=== PATIENT | male | born 1965 | race Caucasian/White ===

== ENCOUNTER 2018-07-13 12:28 | Emergency (ER) | payer MEDICAID, SELFPAY ==
[2018-07-13 12:29] VITALS: BP 120/88; PULSE 73; RESP 16; TEMP 37; O2SAT 97; BMI 24.0
--- NOTE | 2018-07-13 13:01 | ED.VISSUMM ---
- ER Visit Summary Date of Service: 07/13/18 Chief Complaint: Dental pain History of Present Illness: The patient is a 53 M who was seen 1 week ago by urgent care and placed on antibiotics presents with continuing pain of his gingiva he has all his upper teeth removed and developed an ulcerated lesion in that region. No edema, no fever chills or any other symptoms. Physical Examination: Exam is otherwise unremarkable, his upper teeth are missing, he does have an ulcerated lesion over where the right central incisor would be. I do not see any signs of infection. Emergency Department Course and Treatment: I explained to the patient that this may be an ulcerated lesion, however this may need to be biopsied for oral cancer especially that he uses chewing tobacco, I gave him a list of dentists. Otherwise he will be discharged in stable conditions. Discharge stable condition Impression: [Dental ulcer, oral lesion] This note was generated with [employer] dictation software. It may contain incorrect words, spelling, and punctuation that were not noted in review of the chart prior to signing ED Disposition - Plan for ED Patient: Disposition: Home or Assisted Living Chief Complaint: Dental Instructions: Dental Abscess Prescriptions: Hydrocodone Bitart/Apap 5-325 [Fowler 5MG-325MG] 1 tab PO Q4H PRN PRN 2 Days #10 tab PRN Reason: Pain Referrals: Bladimir Delatorre MD [Primary Care Provider] - 2 Days
== END 2018-07-13 13:24 | disposition home or self-care (01) ==
PROVIDERS: Emergency Provider Emergency Medicine; Family Provider Family Medicine; PCP Family Medicine
DX: K13.79 Other lesions of oral mucosa (principal); K08.89 Other specified disorders of teeth and supporting structures; F41.9 Anxiety disorder, unspecified; F17.220 Nicotine dependence, chewing tobacco, uncomplicated; Z72.0 Tobacco use
CPT/HCPCS: 99282

== ENCOUNTER 2020-09-10 11:00 | Emergency (ER) | payer MEDICAID, SELFPAY ==
[2020-09-10 11:01] VITALS: BP 139/105; PULSE 89; RESP 17; TEMP 36.9; O2SAT 100; BMI 23.4
--- NOTE | 2020-09-10 11:16 | RAD_ITS ---
STUDY: X-RAY CHEST REASON FOR EXAM: Male, 55 years old. sob and cough TECHNIQUE: AP COMPARISON: 12/07/2016 FINDINGS: The lungs are clear and expanded. There is no demonstrated pleural abnormality. Normal size heart. Normal mediastinum and nadine. Normal visualized pulmonary arteries. Normal visualized aortic arch and descending thoracic aorta. Normal visualized thoracic spine. Normal visualized ribs, clavicles, and shoulders. There is no demonstrated abnormality of the visualized soft tissue structures of the upper abdomen. RAD/Chest 1 View (Portable) IMPRESSION: Stable, nonacute portable x-ray examination of the chest. Electronically Signed: Tyrone Nash MD ([place]) at 12:33 EDT , Service support ,
--- NOTE | 2020-09-10 11:18 | ED.VIS.GEN ---
History of Present Illness Chief Complaint: Shortness of Breath Narrative: This patient is a 55-year-old male who has been ill for the past 3 to 4 days. He complains of headache, fatigue, generalized malaise, myalgias and arthralgias, a scratchy throat, cough, shortness of breath, diarrhea, nausea. No fevers. No vomiting. No chest or abdominal pain. He denies any heart or lung disease. He has a history of anxiety otherwise no medical history. Past Medical History - Allergies and Home Meds Allergies/Adverse Reactions: Allergies aspirin Adverse Reaction (Verified 09/10/20 11:01) Abd cramps/diarrhea sulfamethoxazole [From Bactrim] Adverse Reaction (Verified 09/10/20 11:01) Abd cramps/diarrhea trimethoprim [From Bactrim] Adverse Reaction (Verified 09/10/20 11:01) Abd cramps/diarrhea Primary Care Physician: Bladimir Delatorre MD [Primary Care Provider] - Past Medical History: - - Anxiety Smoking Status: Current every day smoker Review of Systems All systems negative except as indicated General: Reports: Malaise. Denies: Fever Eyes: Denies: Visual changes - bilaterally ENT: Reports: Sore throat Cardiovascular: Denies: Chest pain Respiratory: Reports: Dyspnea, Cough Gastrointestinal: Reports: Nausea, Diarrhea. Denies: Abdominal pain, Vomiting Musculoskeletal: Reports: Myalgias, Arthralgias Skin: Denies: Rash Neurological: Denies: Headache Hematologic: Denies: Easy bruising Allergy: Denies: Uticaria Physical Exam Vital Signs/Narrative: Vital Signs Temp Pulse Resp BP Pulse Ox 09/10/20 11:01 98.4 F 89 17 139/105 H 100 Inital Vital Signs reviewed: Yes General: Well nourished Head: Normocephalic Eyes: EOMI ENT: Moist mucous membranes Neck: Supple Cardiovascular: Regular rate, Regular rhythm Respiratory: No distress, CTA bilaterally Abdomen: Soft Skin: Normal color Neurological: Alert Psychological: Normal affect Diagnostic/Tx/Re-eval Impressions Chest X-Ray 09/10/20 11:16 IMPRESSION: Stable, nonacute portable x-ray examination of the chest. Electronically Signed: Tyrone Nash MD ([place]) at 12:33 EDT , Service support , 09/10/20 11:16 CXR [Chest 1 View (Portable)] [RAD] Stat - Medical Decision Making Chest x-ray unremarkable no focal infiltrate. Patient's vitals are stable. He actually notes his symptoms are little bit better today than they were yesterday. COVID-19 testing was sent. He was advised that his presentation is most consistent with a viral syndrome. He was advised on quarantine. He understands to return for new or worsening symptoms. The patient was instructed on specific signs and symptoms to monitor for and the patient was discharged. ED Disposition - Plan for ED Patient: Disposition: Home or Assisted Living Diagnosis: Viral syndrome Instructions: ED Viral Syndrome Referrals: Bladimir Delatorre MD [Primary Care Provider] -
[2020-09-10 11:23] VITALS: BP 139/105; PULSE 89; RESP 17; TEMP 36.9; O2SAT 100; O2SAT 97
[2020-09-10 13:03] VITALS: BP 135/74; PULSE 74; PULSE 81; RESP 16; O2SAT 98
== END 2020-09-10 13:03 | disposition home or self-care (01) ==
PROVIDERS: Emergency Provider Emergency Medicine; PCP Family Medicine
DX: B34.9 Viral infection, unspecified (principal); R51.9 Headache, unspecified; R53.83 Other fatigue; R53.81 Other malaise; M79.10 Myalgia, unspecified site; J02.9 Acute pharyngitis, unspecified; R06.00 Dyspnea, unspecified; R05 Cough; R11.0 Nausea; R19.7 Diarrhea, unspecified; F17.200 Nicotine dependence, unspecified, uncomplicated
CPT/HCPCS: 71045; 87635; 99282; U0003

== ENCOUNTER 2021-05-23 11:16 | Emergency (ER) | payer MEDICAID, SELFPAY ==
[2021-05-23 11:17] VITALS: BP 134/89; PULSE 80; RESP 16; TEMP 36.5; O2SAT 100; BMI 23.7
--- NOTE | 2021-05-23 11:36 | CT_ITS ---
STUDY: CT ABDOMEN AND PELVIS WITH CONTRAST REASON FOR EXAM: Male, 56 years old. Abdominal pain and radiating into back. History of bleeding ulcers. RADIATION DOSAGE (If Supplied By Facility): CTDIvol = ( 9.49 ) mGy, DLP = ( 633.84 ) mGycm TECHNIQUE: Transaxial images were obtained from the dome of the diaphragm to the symphysis pubis without oral contrast. IV 100mL Isovue-300 was administered. Sagittal and coronal images were reconstructed. Individualized dose optimization techniques were used for this CT. COMPARISON: None. FINDINGS: The visualized lung bases are unremarkable. Coronary artery calcification. Dense linear calcification along the medial aspect of the left lobe of the liver suggestive of granulomatous disease. Normal gallbladder and extrahepatic biliary system. Normal spleen. Normal pancreas. Normal bilateral adrenal glands. Normal right kidney. There is a 2.6 cm x 2.7 cm cyst in the upper posterior aspect of the left kidney. There is a small hiatal hernia. Normal small intestine. There are multiple colonic diverticula consistent with diverticulosis. The appendix is visualized and appears normal. There is scattered atherosclerotic calcification of the abdominal aorta, without a demonstrated aneurysm. Normal inferior vena cava. Normal retroperitoneum. Mild degree of diffuse bladder wall thickening. There is enlargement of the prostate gland. It measures 5.3 cm x 4.1 cm. This causes indentation of the bladder base. Normal abdominal wall. Normal osseous structures. CT/Abdomen/Pelvis W IV Cont ONLY IMPRESSION: Dense linear calcification along the medial aspect of the left lobe of the liver. Colonic diverticulosis. 2.6 cm x 2.7 cm cyst in the upper posterior aspect of the left kidney. Prostatic enlargement. Mild degree of diffuse bladder wall thickening. Electronically Signed: Jose Gallagher MD at 12:47 EDT , Service support ,
--- NOTE | 2021-05-23 11:37 | ED.VIS.GI ---
HPI HPI - GI History of Present Illness Chief Complaint: Abd Pain Detail of Chief Complaint: Abdominal pain that started 4 to 5 days ago Informant: patient Abdominal Pain/Flank Pain Timing: Continuous and Waxes and wanes Current Severity: 6/10 Nausea/Vomiting/Emesis GI Symptom: Positive for Nausea Narrative Narrative: Patient presents with abdominal pain that started 4 to 5 days ago. Patient states that it is continuous but waxes and wanes in intensity. Patient states that food seems to make it worse. He has had nausea but no vomiting. He denies any fevers. He denies any blood in stool or black tarry stools. Patient states that at times the pain will radiate to his back and right upper quadrant. Patient states he had similar pain in the past and was diagnosed with pancreatitis 8 years ago or so. He does not drink alcohol. Patient started Mobic for arthritis recently and he thought that may be causing his discomfort so he stopped taking it a few days ago. Patient denies any urinary symptoms. Prior similar symptoms: Yes [facility] Medical History (Updated 05/23/21 @ 13:[address] Saadia Razo, ) Anxiety Home Medications lorazepam 1 mg PO TID 09/10/20 [History Last Taken Unknown] hydrocodone-acetaminophen 1 tab PO Q4H PRN PRN 2 Days #10 tablet 05/23/21 [Rx Last Taken Unknown] lansoprazole [Prevacid] 30 mg PO DAILY #30 cap 05/23/21 [Rx Last Taken Unknown] Allergy/AdvReac Type Severity Reaction Status Date / Time aspirin AdvReac Abd Verified 05/23/21 11:17 cramps/diarrhea sulfamethoxazole AdvReac Abd Verified 05/23/21 11:17 [From Bactrim] cramps/diarrhea trimethoprim [From Bactrim] AdvReac Abd Verified 05/23/21 11:17 cramps/diarrhea Social History Smoking Status: Current every day smoker tobacco type: cigarettes ROS ROS ED Constitutional Constitutional ED: Reports systems reviewed and no addt'l complaints, except as documented; Denies body ache(s), change in weight or chills Eyes Eyes: Denies acute decrease in peripheral vision, change in vision, double vision or loss of vision ENT ENT ED: Reports none; Denies ear pain, lip swelling, loss taste/smell, neck pain, otalgia or sore throat Cardiovascular Cardiovascular: Reports none; Denies abdominal pain, chest pain with activity, leg edema, lightheadedness, palpitations, rapid heart rate or syncope Respiratory/Chest Respiratory/Chest: Reports none; Denies change in mental status, dry cough, dyspnea, hemoptysis, shortness of breath at rest or shortness of breath with exertion Gastrointestinal Gastrointestinal: Reports abdominal pain and nausea Genitourinary Genitourinary ED: Reports none; Denies abdominal discomfort, anuria, dysuria, genital pain or polyuria Musculoskeletal Musculoskeletal: Reports none; Denies arthralgias, back pain, difficulty walking, extremity pain, muscle weakness or myalgias Integumentary Reports none; Denies abscess or rash Neurologic Neurologic: Reports none; Denies abnormal gait, confusion, focal weakness, frequent falls, headache(s), loss of vision, numbness, paresthesias, radicular pain, vertigo or weakness Psychiatric Psychiatric: Reports systems reviewed and no addt'l complaints, except as documented and none; Denies behavioral changes, confusion, difficulty concentrating, hallucinations, suicidal ideation, tactile hallucinations or visual hallucinations Endocrine Endocrinology: Denies none, cold intolerance, excessive sweating, fatigue or heat intolerance Hematologic/Lymphatic Hematologic/Lymphatic: Reports none; Denies anemia, easy bleeding or easy bruising Allergic/Immunologic Allergic/Immunologic ED: Denies as per HPI, none, lip swelling, mouth swelling, throat swelling, tongue swelling or hives EXAM Physical Exam Const Vital Signs: 05/23/21 11:17 Temperature 97.7 F L Temperature Source Temporal Pulse Rate 80 Respiratory Rate 16 Blood Pressure 134/89 H Blood Pressure Mean 104 Pulse Ox 100 Oxygen Delivery Method Room Air Positive well nourished and well developed General Appearance ED: well developed and NAD HEENT Reports TM's clear and moist mucous membranes normocephalic and atraumatic; Negative for trauma or tenderness Tympanic Membrane ED: Yes TM's clear Eyes PERRL and EOMs intact bilaterally General Eye ED: Negative for pale conjunctiva or scleral icterus Neck no lymphadenopathy, supple and no JVD General: Negative for tenderness Chest Wall inspection of chest normal and palpation of chest normal Chest: Negative for tenderness Resp normal respiratory effort and clear to auscultation bilaterally Effort and Inspection: Negative for respiratory distress or pain with movement Auscultation: Negative for rhonchi, wheezes or diminished lung sounds Cardio regular rate, regular rhythm, S1 normal heart sound, S2 normal heart sound and no murmurs Peripheral Pulses: pulses 2+ throughout GI normal to inspection, nondistended, normoactive bowel sounds, soft to palpation, non-tender, non-distended and no masses GI Narrative: Patient tender to the epigastric region right upper quadrant with some mild guarding. There is no rebound, rigidity, or peritoneal signs. No masses palpated. Palpation: tender Back/Spine no CVA tenderness and no thoracic nor lumbar tenderness Extremity normal to inspection General Extremety ED: Negative for edema General Extremity: Negative for edema Neuro oriented x3, CN's II-XII intact bilaterally, no sensory deficits noted and gait normal Sensorium / Orientation: awake, alert, oriented to person, oriented to place and oriented to time Motor Exam: strength 5/5 throughout and strength abnormal Psych mental status grossly normal Skin no rashes or lesions noted and no wounds MDM MDM MDM Narrative Medical decision making narrative: Etiology of patient's abdominal pain unclear. Patient will start Prevacid and will give a few [place] for pain. Patient will be referred to urology for follow-up of the prostate enlargement and also given referral to general surgeon on-call for possible EGD to evaluate his abdominal pain further. Patient advised to return if worsening pain, fever, vomiting, or condition should worsen anyway. Lab Data Attestation: I reviewed the patient's lab results. Labs: Laboratory Results - last 24 hr 05/23/21 05/23/21 05/23/21 12:00 12:05 12:05 WBC 6.5 RBC 5.09 Hgb 15.3 Hct 44.9 MCV 88.2 MCH 30.1 MCHC 34.1 RDW Std Deviation 43.2 RDW Coeff of Halley 13.2 Plt Count 229 MPV 9.5 Immature Gran % (Auto) 0.300 Neut % (Auto) 55.6 Lymph % (Auto) 33.5 Jennings % (Auto) 6.0 Eos % (Auto) 3.4 Baso % (Auto) 1.2 H Absolute Neuts (auto) 3.6 Absolute Lymphs (auto) 2.17 Nucleated RBC % 0 Sodium 138 Potassium 4.0 Chloride 106 Carbon Dioxide 29.0 Anion Gap 3 L BUN 6 L Creatinine 1.08 Estim Creat Clear Calc 62.93 Est GFR (MDRD) Af Amer 92 Est GFR (MDRD) Non-Af 76 BUN/Creatinine Ratio 5.6 L Glucose 83 Lactic Acid Calcium 9.0 Total Bilirubin 0.40 AST 19 ALT 20 Alkaline Phosphatase 91 Total Protein 7.5 Albumin 4.1 Globulin 3.4 Albumin/Globulin Ratio 1.2 Lipase 56 L Urine Color Yellow Urine Clarity Clear Urine pH 6.0 Ur Specific Benedicta 1.010 Urine Protein 15 H Urine Glucose (UA) Normal Urine Ketones Negative Urine Occult Blood Negative Urine Nitrite Negative Urine Bilirubin Negative Urine Urobilinogen Normal Ur Leukocyte Esterase Negative Urine RBC 0 SEEN Urine WBC 0 SEEN Ur Squamous Epith Cells 0 SEEN Urine Bacteria 0 SEEN Urine Mucus 0 SEEN 05/23/21 12:05 WBC RBC Hgb Hct MCV MCH MCHC RDW Std Deviation RDW Coeff of Halley Plt Count MPV Immature Gran % (Auto) Neut % (Auto) Lymph % (Auto) Jennings % (Auto) Eos % (Auto) Baso % (Auto) Absolute Neuts (auto) Absolute Lymphs (auto) Nucleated RBC % Sodium Potassium Chloride Carbon Dioxide Anion Gap BUN Creatinine Estim Creat Clear Calc Est GFR (MDRD) Af Amer Est GFR (MDRD) Non-Af BUN/Creatinine Ratio Glucose Lactic Acid 1.0 Calcium Total Bilirubin AST ALT Alkaline Phosphatase Total Protein Albumin Globulin Albumin/Globulin Ratio Lipase Urine Color Urine Clarity Urine pH Ur Specific Benedicta Urine Protein Urine Glucose (UA) Urine Ketones Urine Occult Blood Urine Nitrite Urine Bilirubin Urine Urobilinogen Ur Leukocyte Esterase Urine RBC Urine WBC Ur Squamous Epith Cells Urine Bacteria Urine Mucus Radiography Diagnostic Testing: Radiology Impression Abdomen/Pelvis CT 05/23/21 11:36 IMPRESSION: Dense linear calcification along the medial aspect of the left lobe of the liver. Colonic diverticulosis. 2.6 cm x 2.7 cm cyst in the upper posterior aspect of the left kidney. Prostatic enlargement. Mild degree of diffuse bladder wall thickening. Electronically Signed: Jose Gallagher MD at 12:47 EDT , Service support , Discharge Plan Triage Chief Complaint: Abd Pain ED Provider: Saadia Razo Dx/Rx/DC Orders Clinical Impression: Abdominal pain Instructions: ED Unknown Causes of Abdominal ... Prescriptions: New hydrocodone-acetaminophen [hydrocodone-acetaminophen] 1 TABLET tablet 1 tab PO Q4H PRN PRN (Reason: Pain) 2 Days Qty: 10 RF: 0 lansoprazole [Prevacid] 30 mg capsule,delayed release(DR/EC) 30 mg PO DAILY Qty: 30 RF: 0 No Action lorazepam 1 MG tablet 1 mg PO TID RF: 0 Primary Care Provider: Bladimir Delatorre Referrals: Ty Lopes MD [STAFF PHYSICIAN] - 3-5 Days Jb Rodriguez MD [STAFF PHYSICIAN] - 3-5 Days Bladimir Delatorre MD [Primary Care Provider] - Disposition Disposition: Home, Self Care
[2021-05-23] MEDS: Ondansetron 4 MG/2 ML Vial IV (12:05)
[2021-05-23] MEDS: Morphine 4 MG/ML Syringe IV (12:05)
[2021-05-23 12:10] LABS: Bacteria 0 SEEN /hpf (None Seen); Mucous, Urine 0 SEEN /hpf (<or=2+); Red Blood Cells-Urine 0 SEEN /hpf (0-5); Squamous Epithelial Cells - UA 0 SEEN /hpf (0-5); White Blood Cells 0 SEEN /hpf (0-5)
[2021-05-23] MEDS: 0.9% Normal Saline 1,000 ML 125 ML IV (12:12)
[2021-05-23 12:15] LABS: Color, Urine Yellow (Yellow); Glucose, Dipstick Normal (Normal); Ketone-Dipstick Negative (Negative); Leukocyte Esterase-Dipstick Negative /ul (Negative); Nitrite-Dipstick Negative (Negative); Occult Blood-Urine Negative /ul (Negative); Protein-Dipstick 15 mg/dl (Negative); Urine Bilirubin Dipstick Negative (Negative); Urine Clarity Clear (Clear); Urine Urobilinogen Normal (Normal)
[2021-05-23 12:15] LABS: Absolute Lymphocyte Count 2.17 X10^3/uL (0.83-4.51); Absolute Neutrophil Count 3.6 X10^3/uL (2.0-7.7); Basophil# 0.08 X10^3/uL; Basophil% 1.2 % (0-1); Eosinophil# 0.22 X10^3/uL; Eosinophils% 3.4 % (0-5); Hematocrit 44.9 % (40-54); Hemoglobin 15.3 g/dL (13.0-16.5); Lymphocyte # 2.17 X10^3/ul (0.83-4.51); Lymphocyte % 33.5 % (19-41); Mean Corp Hgb Conc 34.1 g/dL (32-36); Mean Corpuscular Hgb 30.1 pg (27.0-32.0); Mean Corpuscular Volume 88.2 fL (80-94); Mean Platelet Vol. 9.5 fl (6.2-12.0); Monocyte# 0.39 X10^3/uL; NRBC Flagged by Analyzer 0 % (0-5); Neutrophil % 55.6 % (47-70); Platelet Count 229 K/mm3 (150-450); RBC Distribution Width CV 13.2 % (11.6-14.6); RBC Distribution Width SD 43.2 fl (35.1-43.9); Red Blood Count 5.09 M/mm3 (4.6-6.2); White Blood Count 6.5 K/mm3 (4.4-11.0)
[2021-05-23 12:28] LABS: ALB/GLOB Ratio 1.2 RATIO (0.9-2.4); AST(SGOT) 19 U/L (15-37); Alanine Aminotransfer ALT/SGPT 20 U/L (16-61); Albumin, Serum 4.1 g/dL (3.2-5.0); Alkaline Phosphatase 91 U/L (45-117); Anion Gap 3 (5-15); BUN 6 mg/dL (7-18); BUN/Creat Ratio 5.6 RATIO (10-20); Chloride 106 mmol/L (98-107); Creatinine, Serum 1.08 mg/dL (0.70-1.30); EST Glomerular Filtration Rate 76 mL/min (>60); Est Glom Filt Rate - Afr Amer 92 mL/min (>60); Estimated Creatinine Clearance 62.93 ml/min; Globulin 3.4 g/dL (2.2-4.2); Glucose 83 mg/dL (74-106); Lipase 56 U/L (73-393); Protein, Total 7.5 g/dL (6.4-8.2); Sodium Level 138 mmol/L (136-145)
== END 2021-05-23 14:29 | disposition home or self-care (01) ==
PROVIDERS: Emergency Provider Emergency Medicine; PCP Family Medicine
DX: R10.9 Unspecified abdominal pain (principal); R11.0 Nausea; F41.9 Anxiety disorder, unspecified; M19.90 Unspecified osteoarthritis, unspecified site; N40.0 Benign prostatic hyperplasia without lower urinary tract symptoms; Z87.19 Personal history of other diseases of the digestive system; Z79.82 Long term (current) use of aspirin; Z79.899 Other long term (current) drug therapy; F17.210 Nicotine dependence, cigarettes, uncomplicated
CPT/HCPCS: 74177; 80053; 81001; 83605; 83690; 85025; 96361; 96374; 96375; 99283; J7030; Q9967; A4216; J2405

== ENCOUNTER 2022-06-05 13:00 | Outpatient (RCR) | payer MEDICAID, SELFPAY ==
--- NOTE | 2022-04-16 18:07 | HP.OTEVAL ---
Patient's Visit Information MONAE LEDEZMA is a 56 year old M, referred to Occupational Therapy by Dr. 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 Date of Evaluation: 04/16/22 Occupational Therapist: Ai Sanz, OTR/L, CHT - Subjective Pt. is a 56 y/o male who was referred for OT evaluation for osteoarthritis of L hand. Goes by MEGGAN and arrived with prefab splint. L hand has been bothering him for 2 years then decided on surgery. Surgery was on the April 04 (2 weeks on Saturday) CMC surgery, [facility] by Dr. Ingram. Pt. has been having difficulty with ADL's, IADL (guitar playing), work and motorcycle riding. Pt. reporting that he is out of pain medication. S/OT explained that he will need to speak with doctor about pain med refill that the S/OT cannot call over for that. Pt. would like to return to [facility]. - ADLs Dressing: Button shirt, Pants, Socks Fasteners: Buttons, Zippers Eating: Cut food Comments: landlord takes care of Comments: Ambidextrous more dominant on R hand. is able to assist as needed. Takes him longer to get dressed and compensates. - Pain Left Hand 6 Pain Intensity Range: 10 - Objective short arc motion (wrist flex/ext) and opposition - ROM Shoulder: B WFL Elbow: B WFL Forearm: R WFL L supination to 50* Wrist: R 45/50 L 5/30 CMC: R 20* L -5* MP: R 20/ 58 L 0/35 IP: R +30/80 L +5/20 Opposition: right 10 left 4 ROM Comments: L hand has decreased ROM. Kapandji opposition scale (4). 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 no difference with temperature - Quick DASH-Disab of Arm,Shoulder& Hand Quick DASH Score: 83.3325 - Goals Goal:100% adherence to protocol: Yes Comment: Dr. Ingram cmc arthroplasty guideline Goal:Daily scar massage when approriate: Yes Goal:ROM equal to unaffected hand: Yes Goal:Licensed [employer] Real Estate Appraiser/Pinch strength at least 75% of unaffected hand: Yes Goal:No pain with affected hand use: Yes Goal:Full use of affected hand in daily activities including: Yes Goal:Decrease scar hypersensitivity: Yes - Rehabilitation General Assessment: Pt. 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 Ingram. Pt. is to follow ROM and strengthening protocol. Educated pt. On what to expect. He has deficits with strength and ROM in L hand. He will benefit from skilled OT services 2x a week for 6 weeks to improve strength and ROM for ADL tasks and return to work. CHT educated pt. on procedure and guideline. Pt. demo'd understanding & agreeable to POC. Therapy session was directly supervised and doc. reviewed and approved by Ai Sanz OTR/L, CHT. Rehabilitation Potential: Good - Anticipated Interventions Early Active Motion, A/AAROM/PROM, Strengthening, Edema Control, Scar Care, Desensitization, Wound Care, Orthoses, Joint Protection/Energy Conservation, Ergonomic Education, Fine Motor Coord/Carlos, ADL Training, Education re Diagnosis, Home Program - Visit Plan Frequency: 2x /Week Duration: 6 Weeks TEXT: Thank you for the opportunity to evaluate your patient. For Medicare and Medicare HMO plans, please review the plan of care and approve it. It will need to be FAXED BACK to us at [phone] for Medicare purposes. Please let me know if there are questions or concerns regarding this plan of care. Physician Signature: Date:
--- NOTE | 2022-06-05 13:28 | HP.OTDCSUM ---
It has been my pleasure to treat MONAE LEDEZMA under orders from Dr. 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 Please see the following information for a summary of their discharge status. % Improvement: 95 Objective/Function: left director of religious activities strength 60#. left lateral pinch strength 4#. left tripod pinch strength 2#. cmc 10*. MP 50*. IP 45*. RA 55*. left opposition to left LF PIP crease. pt demo full functional ROM of left wrist/thumb following a CMC arthroplasty-. pt is out of his brace all of the time-. pt reports IND. with ADLS and IADLs- riding motor cycle -for about and hour at a time- some soreness following. pt is weeding and helping co-worker out with yard worked. pt also changed roters in his car Patient Goals: Regain Mobility, Regain Strength, Decrease Pain, Return to Work, Decrease Swelling/Stiffness, Improve Fine Motor Skills, Use Hand/Wrist/Arm Normally Again, Decrease Tingling/Numbness, Increase ROM, Be More Independent in ADLS, Resume Former Household Responsibilities (Cooking,Cleaning,Yard, etc.), Resume Hobbies, Other Other: play guitar and ride motorcycle Goal:100% adherence to protocol: Yes Goal:Daily scar massage when approriate: Yes Goal:ROM equal to unaffected hand: Yes Goal:Payroll And Benefits Analyst/Pinch strength at least 75% of unaffected hand: Yes Goal:No pain with affected hand use: Yes Goal:Full use of affected hand in daily activities including: Yes Goal:Decrease scar hypersensitivity: Yes Plan: pt met OT goals and is D.C at this time Discharge Comments: PT was seen for 9 OT visits following a left CMC arthroplasty- pt has met OT goals at this time and is d/c with continuation of HEP If there are questions or concerns regarding this patient's occupational therapy, please fell free to call me at [phone]. Thank you for the referral of this patient. Sincerely, Ai Sanz, OTR/L, CHT
== END 2022-06-05 14:23 | disposition home or self-care (01) ==
LOC: OT 13:00
PROVIDERS: PCP Family Medicine; Referring Provider Orthopaedic Surgery; Visit Provider Orthopaedic Surgery
DX: M18.12 Unilateral primary osteoarthritis of first carpometacarpal joint, left hand (principal)
CPT/HCPCS: 97110; 97140; 97165; 97530; 97760; 97763

== ENCOUNTER 2024-02-15 17:33 | Emergency (ER) | payer MEDICAID, SELFPAY ==
[2024-02-15 17:33] VITALS: BP 133/86; PULSE 71; RESP 16; TEMP 36.4; O2SAT 100
[2024-02-15 17:34] VITALS: BP 133/86; PULSE 65; RESP 15; TEMP 36.6; O2SAT 100; BMI 26.2
--- NOTE | 2024-02-15 17:54 | EX.ED.DYSGE1 ---
HPI <RODO Taylor - Last Filed: 02/15/24 18:33> History of Present Illness Chief Complaint: Lower Extremity Injury Narrative Narrative: 58-year-old male states 1 week ago he was squatting down to get something out of the fridge when he felt a small pop and pain in the left knee. It was swollen and painful since then and his doctor did an x-ray which showed arthritis. He was taking Tylenol and Motrin. Today he was turning to enter the bathroom and felt a larger pop in the medial knee and has increased pain. He can ambulate with difficulty. He has no weakness or paresthesias. No fall or direct trauma. PFSH <RODO Taylor - Last Filed: 02/15/24 18:33> [facility] Medical History (Updated 02/15/24 @ 18:29 by RODO Taylor) Abdominal pain Anxiety Anxiety Arthritis Back pain Constipation Depression Fatigue Gastric reflux Hemorrhoids History of echocardiogram History of hiatal hernia History of pain when walking History of stress test Hx of gastric ulcer Hypertension Injury of back Migraine headache Nausea Rheumatoid arthritis Smoker SOB (shortness of breath) Wears dentures Wears glasses Wears partial dentures Home Medications lorazepam 1 mg tablet 1 mg PO TID 09/10/20 [History Last Taken Unknown] cyclobenzaprine 10 mg tablet 10 mg PO PRN PRN MUSCLE SPASMS 06/22/21 [History Last Taken Unknown] lansoprazole 30 mg capsule,delayed release (Prevacid) 30 mg PO PRN PRN GERD 06/22/21 [History Last Taken Unknown] oxycodone-acetaminophen 5 mg-325 mg tablet (Percocet) 1 tab PO Q6H PRN pain 3 days #12 tabs 02/15/24 [Rx Last Taken Unknown] Allergy/AdvReac Type Severity Reaction Status Date / Time promethazine [From Phenergan] AdvReac Mild HALLUCINATI Verified 02/15/24 17:37 ONS aspirin AdvReac Abd Verified 02/15/24 17:37 cramps/diarrhea sulfamethoxazole AdvReac Abd Verified 02/15/24 17:37 [From Bactrim] cramps/diarrhea trimethoprim [From Bactrim] AdvReac Abd Verified 02/15/24 17:37 cramps/diarrhea Family History (Updated 06/06/21 @ 15:06 by Dea Slade) Mother Cancer Father Cancer CVA (cerebral vascular accident) Surgical History History of cardiac catheterization History of colonoscopy Social History (Updated 06/06/21 @ 15:06 by Dea Slade) Smoking Status: Current every day smoker tobacco type: cigarettes alcohol intake: never substance use type: does not use caffeine: Yes what type of physical activity do you participate in: none frequency: does not exercise ROS <RODO Taylor - Last Filed: 02/15/24 18:33> ROS ED ROS Narrative Constitutional: Negative for fever, chills, malaise. Neuro: Negative for motor/sensory dysfunction. Musc: Positive for left knee pain, swelling. EXAM <RODO Taylor - Last Filed: 02/15/24 18:33> Physical Exam Narrative Exam Narrative: CONST: Patient sitting in no acute distress. EYES: Normal inspection. SKIN: Color normal, no rash, warm, dry, intact. EXTREMITIES: Large left knee effusion and tenderness over the medial joint line, normal extension, pain with valgus stress but no laxity. Negative anterior/posterior drawer. Negative modified Kori's. 5/5 strength in knee flexion/extension and DF/PF, normal sensation, 2+ DP pulse. NEURO: Alert and answering questions appropriately. PSYCH: Normal affect. Const Vital Signs: 02/15/24 17:33 02/15/24 17:34 Temperature 97.6 F L 98 F Temperature Source Temporal Temporal Pulse Rate 71 65 Respiratory Rate 16 15 Blood Pressure 133/86 H 133/86 H Blood Pressure Mean 101 101 Pulse Ox 100 100 Oxygen Delivery Method Room Air Room Air <Dr. Saadia Razo DO - Last Filed: 02/15/24 18:29> Physical Exam Const Vital Signs: 02/15/24 17:33 02/15/24 17:34 Temperature 97.6 F L 98 F Temperature Source Temporal Temporal Pulse Rate 71 65 Respiratory Rate 16 15 Blood Pressure 133/86 H 133/86 H Blood Pressure Mean 101 101 Pulse Ox 100 100 Oxygen Delivery Method Room Air Room Air MDM <RODO Taylor - Last Filed: 02/15/24 18:33> MDM MDM Narrative Medical decision making narrative: Patient felt a pop and has pain and swelling in the left medial knee. He has a significant effusion on exam and tenderness over the medial joint line. He has pain with valgus stress but no significant laxity. Extension is intact; neurovascularly intact. X-ray shows an effusion but no acute findings. He was given a knee immobilizer, crutches, Percocet and orthopedic follow-up. Differential: Ligamentous or meniscal injury, knee fracture ED attending interpretation of left knee shows an effusion with no acute fracture or dislocation. Patient seen and evaluated with JOSSELIN. I personally interviewed and examined the patient. I was involved in all aspects of patient's orders, interpretation of results, and treatment. Patient presents with left knee pain/injury initially 1 week ago. Patient states that he crouched down to get an apple out of the fridge and when he tried to stand back up he felt a pop in his knee and had a hard time standing up and straightening the knee. Patient was seen by his primary care physician who ordered an x-ray and was told he had arthritis in the medial compartment but no fractures or other abnormalities. Today he had another episode this morning after going to the bathroom where he felt another large pop and having more pain. He had no trauma or falls otherwise. HEENT-PERRLA, EOMI Cardiovascular-regular rate and rhythm without murmur Lungs-clear to auscultation bilaterally Abdomen-normoactive bowel sounds without tenderness palpation. Extremities-left knee-patient has large knee effusion. Limited range of motion secondary to pain and swelling. Ligamentously appears stable but does have pain with stress of the medial collateral ligament. Do not appreciate significant laxity. Negative anterior posterior drawer test. No appreciating popping or clicking with flexion extension of the knee. He is neurovascular intact distally. Tenderness mostly along the medial joint line. Patient presents with left knee injury/pain. Given repeat injury today we will repeat the x-ray. Clinically I suspect meniscal injury versus ligamentous injury. Patient will be placed in a knee immobilizer and given crutches and given Percocet for pain. Will refer to orthopedics for follow-up. On my interpretation of the x-ray of the knee I do not appreciate any fractures. There is a joint effusion. Clinically I suspect ligamentous or meniscal injury. Patient will be placed in a knee immobilizer and given crutches. He will be referred to orthopedics for follow-up. Will be given Percocet for pain. <Dr. Saadia Razo, DO - Last Filed: 02/15/24 18:29> [facility] Narrative Medical decision making narrative: Patient seen and evaluated with JOSSELIN. I personally interviewed and examined the patient. I was involved in all aspects of patient's orders, interpretation of results, and treatment. Patient presents with left knee pain/injury initially 1 week ago. Patient states that he crouched down to get an apple out of the fridge and when he tried to stand back up he felt a pop in his knee and had a hard time standing up and straightening the knee. Patient was seen by his primary care physician who ordered an x-ray and was told he had arthritis in the medial compartment but no fractures or other abnormalities. Today he had another episode this morning after going to the bathroom where he felt another large pop and having more pain. He had no trauma or falls otherwise. HEENT-PERRLA, EOMI Cardiovascular-regular rate and rhythm without murmur Lungs-clear to auscultation bilaterally Abdomen-normoactive bowel sounds without tenderness palpation. Extremities-left knee-patient has large knee effusion. Limited range of motion secondary to pain and swelling. Ligamentously appears stable but does have pain with stress of the medial collateral ligament. Do not appreciate significant laxity. Negative anterior posterior drawer test. No appreciating popping or clicking with flexion extension of the knee. He is neurovascular intact distally. Tenderness mostly along the medial joint line. Patient presents with left knee injury/pain. Given repeat injury today we will repeat the x-ray. Clinically I suspect meniscal injury versus ligamentous injury. Patient will be placed in a knee immobilizer and given crutches and given Percocet for pain. Will refer to orthopedics for follow-up. On my interpretation of the x-ray of the knee I do not appreciate any fractures. There is a joint effusion. Clinically I suspect ligamentous or meniscal injury. Patient will be placed in a knee immobilizer and given crutches. He will be referred to orthopedics for follow-up. Will be given Percocet for pain. Radiography Diagnostic Testin view x-rays of the left knee interpreted by myself is no evidence of fracture. He does have a joint effusion. Discharge Plan Triage Chief Complaint: Lower Extremity Injury ED Midlevel Provider: Charlene Cobos ED Provider: Saadia Razo Dx/Rx/DC Orders Clinical Impression: Effusion of left knee joint, Acute pain of left knee Instructions: ED Knee Effusion, ED Knee Sprain Ligaments Prescriptions: New oxycodone-acetaminophen [Percocet] 5-325 mg tablet 1 tab PO Q6H PRN (Reason: pain) 3 Days Qty: 12 0RF No Action lorazepam 1 MG tablet 1 mg PO TID Patient Comments: Take one tablet three times daily as needed for anxiety. cyclobenzaprine 10 mg tablet 10 mg PO PRN PRN (Reason: MUSCLE SPASMS) Patient Comments: Take 1 tablet by mouth three times daily as needed for Muscle Spasm. lansoprazole [Prevacid] 30 mg capsule,delayed release(DR/EC) 30 mg PO PRN PRN (Reason: GERD) Primary Care Provider: Bladimir Delatorre Referrals: Bladimir Delatorre MD [Primary Care Provider] - Bryce Mercado MD [Med Staff - Active Staff] - Activity Restrictions/Additional Instructions: Your x-ray shows no broken bones. I suspect you have injured your meniscus or ligaments. I recommend wearing the knee immobilizer and using crutches and following up with an orthopedic doctor. Disposition Disposition: Home, Self Care
--- NOTE | 2024-02-15 18:24 | RAD_ITS ---
EXAM: XR LEFT KNEE COMPLETE, 4 OR MORE VIEWS CLINICAL INDICATION: pain TECHNIQUE: Four or more views of the left knee. COMPARISON: No relevant prior studies available. FINDINGS: BONES/JOINTS: Suprapatellar effusion. No acute fracture. No subluxation. Normal alignment. Preservation of the joint space. No sclerotic or destructive changes observed. SOFT TISSUES: Unremarkable. No soft tissue swelling or gas. No radiopaque foreign body. VASCULATURE: Vascular calcifications. RAD/Knee 4 or More Views IMPRESSION: Suprapatellar effusion. Electronically Signed: Babak Merino MD at 19:36 EDT ,
[2024-02-15 18:46] VITALS: BP 132/85; PULSE 63; RESP 16; TEMP 36.3; O2SAT 98
== END 2024-02-15 18:49 | disposition home or self-care (01) ==
LOC: ED 18:34
PROVIDERS: Emergency Provider Emergency Medicine; PCP Family Medicine; Visit Provider Emergency Medicine
DX: M25.462 Effusion, left knee (principal); M25.562 Pain in left knee; X58.XXXA Exposure to other specified factors, initial encounter; I10 Essential (primary) hypertension; F41.9 Anxiety disorder, unspecified; K21.9 Gastro-esophageal reflux disease without esophagitis; Z79.899 Other long term (current) drug therapy; F17.210 Nicotine dependence, cigarettes, uncomplicated
CPT/HCPCS: 73564; 99284

== ENCOUNTER → 2024-02-28 | Outpatient (CLI) | payer MEDICAID, SELFPAY ==
--- NOTE | 2024-02-28 10:09 | MRI_ITS ---
STUDY: MRI LEFT KNEE REASON FOR EXAM: Male, 58 years old. Pain, effusion, evaluate for medial meniscal tear. Popping and grinding. Swelled. Difficulty ambulating and bending. Pain is dull, sharp and throbbing. TECHNIQUE: Standardized fat and water weighted pulse sequences were obtained in all 3 orthogonal planes. COMPARISON: None. FINDINGS: There is a bucket handle tear of the medial meniscus, with a displaced meniscal fragment within the intercondylar notch. Normal hyaline cartilage of the medial femorotibial compartment. Normal medial femoral condyle and tibial plateau. There is a mild grade I MCL sprain with periligamentous edema. Normal distal semimembranosus, gracilis and semitendinosus tendons. Normal lateral meniscus. Normal hyaline cartilage of the lateral femorotibial compartment. Normal lateral femoral condyle and tibial plateau. Normal proximal tibiofibular articulation. Normal lateral collateral (fibular) ligament. Normal popliteus tendon. Normal biceps femoris tendon. Normal anterior cruciate ligament (ACL). Normal posterior cruciate ligament (PCL). Normal congruent patellofemoral articulation. Normal hyaline cartilage of the patellofemoral compartment. Normal medial and lateral patellar retinaculum. Normal quadriceps tendon. Normal patellar tendon. Normal Hoffa''s fat pad. There is a large volume joint effusion. There is a tiny popliteal cyst. There is subcutaneous soft tissue edema around the left knee. The otherwise visualized osseous structures are unremarkable. MRI/Lower Ext Joint Only (Routine) IMPRESSION: Bucket handle tear of the medial meniscus, with a displaced meniscal fragment within the intercondylar notch. Mild grade I MCL sprain. Large joint effusion, with a tiny popliteal cyst. Subcutaneous soft tissue edema around the left knee. Electronically Signed: Timo Whitmore MD at 11:42 EDT ,
== END | disposition home or self-care (01) ==
LOC: MRI 10:07
PROVIDERS: PCP Family Medicine; Referring Provider Orthopaedic Surgery Sports Medicine; Visit Provider Orthopaedic Surgery Sports Medicine
DX: M25.462 Effusion, left knee (principal); M25.562 Pain in left knee
CPT/HCPCS: 73721

== ENCOUNTER 2024-03-11 07:28 | Day surgery (SDC) | payer MEDICAID, SELFPAY ==
[2024-03-11] VITALS (9 sets, daily range): BP systolic 125–160; BP diastolic 87–103; PULSE 65–80; RESP 16–18; TEMP 36.1–36.6; O2SAT 93–100; BMI 26.3
[2024-03-11] MEDS: Lactated Ringers 1,000 ML 15 ML IV ×2 (08:04→10:52)
--- NOTE | 2024-03-11 08:53 | HP.PCM_ITS ---
HPI - General HPI Narrative MONAE LEDEZMA, is a 58 M who presents for left knee arthroscopy, medial meniscus repair, possible partial meniscectomy. no changes to h and p. narcotic counselling, rab and post op instructions given. 6 weeks WBAT in extension crutches. ok to proceed. left knee marked, consent utd. MR#: [id number] Acct: [id number] Name: MONAE LEDEZMA Rep #: [id number] : 1965 Provider: Dr. Bryce Mercado MD Age/Sex: 58/M Location: [facility] [place] Status: Signed Intake Vital Signs 02/14/2417:34 Height 5 ft 7 in Weight: 167 lb BMI 26.2 BP 133/86 H Respiration 15 Pulse 65 Temp 98 F Temp Source Temporal Pulse Oximetry (%) 100 Intake Visit Reasons: LEFT KNEE Accompanied by: Self Is patient in pain?: Yes Pain scale (1-10): 9 Allergies promethazine [From Phenergan] Adverse Reaction (Mild, Verified 03/02/24 15:10) HALLUCINATIONSaspirin Adverse Reaction (Verified 03/02/24 15:10) Abd cramps/diarrheasulfamethoxazole [From Bactrim] Adverse Reaction (Verified 03/02/24 15:10) Abd cramps/diarrheatrimethoprim [From Bactrim] Adverse Reaction (Verified 03/02/24 15:10) Abd cramps/diarrhea Medications cyclobenzaprine 10 mg tablet 10 mg PO PRN PRN MUSCLE SPASMS 06/22/21 [History Confirmed 03/02/24] lansoprazole 30 mg capsule,delayed release (Prevacid) 30 mg PO PRN PRN GERD 06/22/21 [History Confirmed 03/02/24] clonazepam 1 mg tablet 1 mg PO TID PRN 02/18/24 [History Confirmed 03/02/24] PFSH Medical History Abdominal pain Anxiety Anxiety Arthritis Back pain Bucket handle tear of medial meniscus of left knee Constipation Depression Fatigue Gastric reflux Hemorrhoids History of echocardiogram History of hiatal hernia History of pain when walking History of stress test Hx of gastric ulcer Hypertension Injury of back Left knee pain MCL sprain of left knee Migraine headache Nausea Osteoarthritis of left knee Rheumatoid arthritis Smoker SOB (shortness of breath) Wears dentures Wears glasses Wears partial dentures Surgical History History of cardiac catheterization History of colonoscopy Family History Mother CancerFather Cancer CVA (cerebral vascular accident) Social History Smoking Status: Current every day smoker tobacco type: cigarettes alcohol intake: never substance use type: does not use caffeine: Yes what type of physical activity do you participate in: none frequency: does not exercise HPI LEFT KNEE Details: This documentation accurately reflects the service provided and the decisions made by me, Dr. Bryce Mercado MD 03/02/24 6833. Part of today?s visit was documented by [ ], acting as scribe. MONAE LEDEZMA is a 58 year old M here today for follow-up left knee MRI.still pain medial and difficulty with ROM. Ortho Exam General General: Yes no acute distress Neurologic: Yes alert and Yes oriented x3 Psychologic: Yes reasonable and appropriate Right Knee Patella Translation: 2 Left Knee Skin/Wound: Yes CDI, No ecchymosis, No erythema and Yes swelling 2+: Effusion Examination: Yes med jt line tenderness, No Lat jt line tenderness, No TTP inf pole patella, No Crepitus, Yes Pain with flexion, Yes Kori's Test, No TTP Patellar tendon, No TTP Tibial tubercle, No TTP Pes Anserine and No Illiotibial band tenderness Quad Atrophy: No Stability: NML: Anterior Drawer, NML: Serena, NML: Posterior Drawer, NML: Valgus 0, NML: Valgus 30, NML: Varus 0 and NML: Varus 30 Apprehension with Lateral Translation: No Patella Translation: 2 Patellar Tilt Normal: Yes Patella Grind: No KNEE: nvi, able to do SLR, using crutches, rom 10-90. Supplemental Info [facility] [address] [place] [address] Lower Ext Joint Only (Routine) MR#: [id number] Acct: [id number] Name: MONAE LEDEZMA Rep #: [id number] : 1965 M 58 From: Timo Whitmore MD PCP: Dr. Bladimir Delatorre MD Status: REG CLI Study: Lower Ext Joint Only (Routine) Date of Exam: 02/28/24 Exam# [id number] Ordering Dr: Bryce Mercado MD STUDY: MRI LEFT KNEE REASON FOR EXAM: Male, 58 years old. Pain, effusion, evaluate for medial meniscal tear. Popping and grinding. Swelled. Difficulty ambulating and bending. Pain is dull, sharp and throbbing. TECHNIQUE: Standardized fat and water weighted pulse sequences were obtained in all 3 orthogonal planes. COMPARISON: None. FINDINGS: There is a bucket handle tear of the medial meniscus, with a displaced meniscal fragment within the intercondylar notch. Normal hyaline cartilage of the medial femorotibial compartment. Normal medial femoral condyle and tibial plateau. There is a mild grade I MCL sprain with periligamentous edema. Normal distal semimembranosus, gracilis and semitendinosus tendons. Normal lateral meniscus. Normal hyaline cartilage of the lateral femorotibial compartment. Normal lateral femoral condyle and tibial plateau. Normal proximal tibiofibular articulation. Normal lateral collateral (fibular) ligament. Normal popliteus tendon. Normal biceps femoris tendon. Normal anterior cruciate ligament (ACL). Normal posterior cruciate ligament (PCL). Normal congruent patellofemoral articulation. Normal hyaline cartilage of the patellofemoral compartment. Normal medial and lateral patellar retinaculum. Normal quadriceps tendon. Normal patellar tendon. Normal Hoffa''s fat pad. There is a large volume joint effusion. There is a tiny popliteal cyst. There is subcutaneous soft tissue edema around the left knee. The otherwise visualized osseous structures are unremarkable. MRI/Lower Ext Joint Only (Routine) IMPRESSION: Bucket handle tear of the medial meniscus, with a displaced meniscal fragment within the intercondylar notch. Mild grade I MCL sprain. Large joint effusion, with a tiny popliteal cyst. Subcutaneous soft tissue edema around the left knee. Electronically Signed: Timo Whitmore MD at 11:42 EDT , I independently reviewed the imaging. Concur with radiologist report. Coding Level of Care Code Off vis,est,level 4 Diagnoses Left knee pain M25.562 Bucket handle tear of medial meniscus of left knee S83.212A MCL sprain of left knee S83.412A Assessment and Plan Assessment and Plan (1) Left knee pain: Status: Acute Plan: 58-year-old man with a bucket-handle tear medial meniscus. I ran over the diagnosis prognosis different treatment options available for this including doing nothing or nonoperative treatment. This is generally recommended for operative repair of the medial meniscus to fix the displaced fragment prevent osteoarthritis as well as try to see if and repair of the meniscus as this is a secondary stabilizer with the knee. Explained the pros and cons risk benefits of each of these methods of treatment. Regardless there is a chance of still developing long-term risk of osteoarthritis the meniscus not healing or further tearing. Overall my recommendation is for surgery in this case. This to be in the form of left knee arthroscopy, medial meniscus repair, possible partial meniscectomy. Increased risk with infection and other complications with 1ppd smoking, asked to quit/cut back. Pros and cons risks and benefits were discussed with the patient including but not limited to infection, pain, stiffness, bleeding, damage to surrounding structures, neurovascular injury, recurrence or retear, failure or wear of hardware or fixation, instability, fracture, deep vein thrombosis and pulmonary embolism, anesthetic risks, , patient dissatisfaction, need for further surgery and other risks. Patient understood and wished to proceed with surgery, and signed the informed consent documentation. (2) Bucket handle tear of medial meniscus of left knee: Status: Acute Plan: For the low-grade MCL sprain generally recommend nonoperative treatment typically when I repair the medial meniscus bucket-handle tear I do piecrust the MCL and put the patient into a hinged knee brace for 6 weeks so this will help heal the MCL sprain as well. (3) MCL sprain of left knee: [facility] Medical History Abdominal pain Anxiety Anxiety Arthritis Back pain Bucket handle tear of medial meniscus of left knee Constipation Depression Fatigue Gastric reflux Hemorrhoids History of echocardiogram History of hiatal hernia History of pain when walking History of stress test Hx of gastric ulcer Hypertension Injury of back Left knee pain Leg cramps MCL sprain of left knee Migraine headache Nausea Osteoarthritis of left knee Rheumatoid arthritis Smoker SOB (shortness of breath) Wears dentures Wears glasses Wears partial dentures Home Medications cyclobenzaprine 10 mg tablet 10 mg PO PRN PRN MUSCLE SPASMS 06/22/21 [History Last Taken Unknown] lansoprazole 30 mg capsule,delayed release (Prevacid) 30 mg PO PRN PRN GERD 06/22/21 [History Last Taken Unknown] clonazepam 1 mg tablet 1 mg PO TID PRN ANXIETY/ PANIC ATTACK 02/18/24 [History Last Taken 03/10/24] aripiprazole 2 mg tablet (Abilify) 1 mg PO QHS 03/06/24 [History Last Taken 03/10/24] desvenlafaxine succinate 100 mg tablet,extended release 24 hr (Pristiq) 100 mg PO DAILY ANIETY 03/06/24 [History Last Taken 03/11/24] dextromethorphan IR 45 mg-bupropion ER 105 mg biphasic tablet (Auvelity) 1 tab PO BID 03/06/24 [History Last Taken 03/11/24] Allergy/AdvReac Type Severity Reaction Status Date / Time codeine AdvReac Mild Abd Verified 03/11/24 07:46 cramps/diarrhea promethazine [From Phenergan] AdvReac Mild HALLUCINATI Verified 03/11/24 07:46 ONS aspirin AdvReac Abd Verified 03/11/24 07:46 cramps/diarrhea sulfamethoxazole AdvReac Abd Verified 03/11/24 07:46 [From Bactrim] cramps/diarrhea trimethoprim [From Bactrim] AdvReac Abd Verified 03/11/24 07:46 cramps/diarrhea Family History Mother Cancer Father Cancer CVA (cerebral vascular accident) Surgical History History of cardiac catheterization History of colonoscopy History of esophagogastroduodenoscopy (EGD) History of hand surgery Social History Smoking Status: Current every day smoker tobacco type: cigarettes alcohol intake: never substance use type: does not use caffeine: Yes what type of physical activity do you participate in: none frequency: does not exercise Vital Signs Vital Signs Vital Signs: 03/11/24 07:58 03/11/24 07:58 Temperature 98 F Temperature Source Temporal Pulse Rate 72 Respiratory Rate 16 Respiratory Pattern Normal Blood Pressure 125/87 H Blood Pressure Mean 99 Blood Pressure Source Monitor Blood Pressure Position Semi-Fowlers Blood Pressure Location Left Arm Pulse Ox 98 Oxygen Delivery Method Room Air Weight Weight: 163 lb 2.273 oz Body Mass Index (BMI) 26.3
[2024-03-11] MEDS: Cefazolin 2 GM in 0.9% Normal Saline (100mL Bag) 100 ML IV (09:08)
[2024-03-11] MEDS: Epinephrine (1 mg/ml) 1 MG/ML VIAL (09:44)
[2024-03-11] MEDS: Bupivacaine 0.25% 30 ML Vial (10:01)
--- NOTE | 2024-03-11 10:10 | OP.PCM_ITS ---
Problems Associated Problem List Diagnoses (1) MCL sprain of left knee: (2) Bucket handle tear of medial meniscus of left knee: (3) Left knee pain: Report of Operation Date of Procedure: 03/11/24 Pre-Operative Diagnosis: Left knee medial meniscus bucket-handle tear Post-Operative Diagnosis: Same Surgery/Procedure Performed:: Left knee arthroscopy, repair of medial meniscus Surgeon: Bryce Mercado Type of Anesthesia: General and Local Anesthesiologist: Eleazar Bolaños Estimated Blood Loss (mL): 20 Description of Procedure: Patient brought to the operating room theater. Placed supine on the table. General anesthesia induced. 2 g IV Ancef administered prior to the start of the procedure. All bony prominences padded. SCD on the nonoperative leg. Stress positioner to the patient's left side. Lower extremity prepped and draped in the usual sterile fashion chlorhexidine-based prep solution allowing over 3 minutes drying time prior to draping. Tourniquet applied to the thigh appropriately padded. All bony prominences padded. Preoperative timeout performed to confirm the site patient and the surgery. Began by elevating the limb inflated the tourniquet to 250 mmHg. Used standard anterolateral and anteromedial arthroscopy portals. Patellofemoral cartilage appeared normal. Normal gutters. ACL as well as lateral compartment was normal normal lateral meniscus stable to probing. Medial side had normal cartilage on both sides. There was a large bucket-handle tear vertically oriented in the red-white zone. I reduced the tear. I did at the proximal origin of the MCL piecrust technique with a spinal needle to open up the medial compartment. I debrided both sides of the tear gently as well as using a meniscus rasp along the capsular side to stimulate healing. I used Arthrex 2-0 fiber stitch all inside repair devices for 7 vertical mattress sutures along the entire tear area. This was stable and solid to probing good repair good quality tissue. Pictures taken and saved throughout the system. Case terminated arthroscope withdrawn. Wounds cleaned with wet and dry dressing 20 cc of quarter percent bupivacaine instilled in and around the incision sites. Portal sites closed with 3-0 Monocryl sutures followed by Steri-Strips Adaptic 4 x 4 gauze ABD lexii ssing Zackary wrap and hinged knee brace locked in full extension. Patient woken up from a general anesthetic transferred off the operating table and taken to postanesthetic care unit in stable condition. All sponge needle instrument counts were correct no complications. cpt 95161? Complications none Admit VTE Documentation VTE Present on Admission: No VTE Mechan Device Prophylaxis: SCD's VTE Pharm Prophylaxis ordered?: Yes Procedures Musculoskeletal [id number]: Other Procedure See Report
--- NOTE | 2024-03-11 10:16 | DCINST_ITS ---
Discharge Instructions Diet Discharge Diet: No restrictions Activity Discharge Activity: Use Crutches Ice area for (Minutes): 10 Weight Bearing Status: Weight bearing as tolerated Lifting Restrictions: leg straight only, crutches and brace in extension to weight bear Keep extremity elevated above heart level: Operative Extremity Dressing / Incision Call your doctor if your incision/area has: Continuous Slow Oozing, Sudden Increased Bleeding, Increased Pain/ Swelling, Increased Redness, Foul Smelling Discharge and Swelling at the incision site Change Dressing in: leave in place till F/U Cleanse incision/area with: Do not get Incision Wet Follow Up Care Please Follow Up With: Bryce Mercado MD When: 2 days Test Results: Test results from this visit will be discussed in further detail at your follow- up appointment, if applicable. Discharge Plan Admission Attending Provider: Bryce Mercado Primary Care Provider: Bladimir Delatorre Discharge Orders/Prescriptions Prescriptions: New oxycodone-acetaminophen [Percocet] 5-325 mg tablet 1 tab PO Q4H MDD 6 PRN (Reason: pain) 5 Days Qty: 20 0RF aspirin 81 mg tablet,delayed release (DR/EC) 81 mg PO BID MDD 2 Qty: 60 0RF No Action clonazepam 1 mg tablet 1 mg PO TID PRN (Reason: ANXIETY/ PANIC ATTACK) cyclobenzaprine 10 mg tablet 10 mg PO PRN PRN (Reason: MUSCLE SPASMS) Patient Comments: Take 1 tablet by mouth three times daily as needed for Muscle Spasm. lansoprazole [Prevacid] 30 mg capsule,delayed release(DR/EC) 30 mg PO PRN PRN (Reason: GERD) desvenlafaxine succinate [Pristiq] 100 mg tablet extended release 24 hr 100 mg PO DAILY Auvelity 45-105 mg tablet, IR and ER, biphasic 1 tab PO BID aripiprazole [Abilify] 2 mg tablet 1 mg PO QHS Referrals / Follow Up: Bladimir Delatorre MD [Primary Care Provider] - Bryce Mercado MD [Med Staff - Active Staff] - Disposition Disposition (needs filled in before D/C Order can be placed): Home, Self Care
[2024-03-11] MEDS: Oxycodone/Apap 5/325 Tablet PO (11:28)
== END 2024-03-11 12:35 | disposition home or self-care (01) ==
LOC: SDC 07:29 → AC 07:30
PROVIDERS: PCP Family Medicine; Referring Provider Orthopaedic Surgery Sports Medicine; Visit Provider Orthopaedic Surgery Sports Medicine
PROC: (CPT 29870; principal; 2024-03-11 08:50)
DX: S83.412A Sprain of medial collateral ligament of left knee, initial encounter (principal); M25.40 Effusion, unspecified joint; S83.212A Bucket-handle tear of medial meniscus, current injury, left knee, initial encounter; M71.20 Synovial cyst of popliteal space [Baker], unspecified knee; F17.210 Nicotine dependence, cigarettes, uncomplicated; I10 Essential (primary) hypertension; M25.562 Pain in left knee; X58.XXXA Exposure to other specified factors, initial encounter
CPT/HCPCS: 29882; 01400; J7120; J2405

== ENCOUNTER 2024-04-18 12:00 | Emergency (ER) | payer MEDICAID, SELFPAY ==
[2024-04-18 12:00] VITALS: BP 109/86; PULSE 71; RESP 16; TEMP 36.6; O2SAT 98; BMI 24.9
--- NOTE | 2024-04-18 12:13 | EDS_ITS ---
HPI History of Present Illness Chief Complaint: Lower Extremity Injury Detail of Chief Complaint: Left knee injury Informant: patient Narrative Narrative: Patient presents the emergency department complaint of left knee injury. Patient states that he tripped over a lift while helping a friend work on his motorcycle and stumbled. Patient was able to catch himself but had severe pain in his left knee. He thinks maybe the knee twisted. Patient states that 3 to 4 weeks ago he had meniscal repair on that same knee. He is noticed a little more increased swelling than usual since the trip. He is able to bear weight. [facility] Medical History Leg cramps MCL sprain of left knee Bucket handle tear of medial meniscus of left knee Left knee pain Osteoarthritis of left knee Wears dentures Wears partial dentures Wears glasses Injury of back Back pain Migraine headache History of hiatal hernia Gastric reflux Smoker History of pain when walking History of echocardiogram History of stress test Hypertension Hx of gastric ulcer Hemorrhoids Constipation SOB (shortness of breath) Depression Rheumatoid arthritis Arthritis Fatigue Anxiety Anxiety Nausea Abdominal pain Home Medications ?Medication ?Instructions ?Recorded ?Last Taken ?Type cyclobenzaprine 10 mg tablet 10 mg PO PRN PRN MUSCLE SPASMS 06/22/21 Unknown History lansoprazole 30 mg capsule,delayed 30 mg PO PRN PRN GERD 06/22/21 Unknown History release (Prevacid) clonazepam 1 mg tablet 1 mg PO TID PRN ANXIETY/ PANIC 02/18/24 03/10/24 History ATTACK aripiprazole 2 mg tablet (Abilify) 1 mg PO QHS 03/06/24 03/10/24 History desvenlafaxine succinate 100 mg 100 mg PO DAILY ANIETY 03/06/24 03/11/24 History tablet,extended release 24 hr (Pristiq) dextromethorphan IR 45 1 tab PO BID 03/06/24 03/11/24 History mg-bupropion ER 105 mg biphasic tablet (Auvelity) aspirin 81 mg tablet,delayed 81 mg PO BID vte proph #60 tabs 03/11/24 Unknown Rx release acetaminophen 325 mg tablet 650 mg PO ONCE PRN 03/13/24 Unknown History (Tylenol) ibuprofen 200 mg capsule 200 mg PO Q6H PRN 03/13/24 Unknown History oxycodone-acetaminophen 5 mg-325 1 tab PO Q4H PRN pain 5 days #20 03/17/24 Unknown Rx mg tablet (Percocet) tabs hydrocodone-acetaminophen 5-325mg 1 tab PO Q4H PRN PRN Pain 2 days 04/18/24 Unknown Rx 5mg-325mg #10 TABLETS Allergy/AdvReac Type Severity Reaction Status Date / Time codeine AdvReac Mild Abd Verified 04/18/24 12:02 cramps/diarrhea promethazine (From Phenergan) AdvReac Mild HALLUCINATI Verified 04/18/24 12:02 ONS aspirin AdvReac Abd Verified 04/18/24 12:02 cramps/diarrhea sulfamethoxazole (From AdvReac Abd Verified 04/18/24 12:02 Bactrim) cramps/diarrhea trimethoprim (From Bactrim) AdvReac Abd Verified 04/18/24 12:02 cramps/diarrhea Family History Mother Cancer Father Cancer CVA (cerebral vascular accident) Surgical History S/P lateral meniscus repair of left knee History of esophagogastroduodenoscopy (EGD) History of hand surgery History of cardiac catheterization History of colonoscopy Social History Smoking Status: Current every day smoker tobacco type: cigarettes alcohol intake: never substance use type: does not use caffeine: Yes what type of physical activity do you participate in: none frequency: does not exercise ROS ROS ED Review of Systems ROS Unobtainable: other Constitutional Constitutional ED: Reports lethargy; Denies chills, fever(s), sweats or weight loss Eyes Eyes: Denies blurry vision, change in vision or diplopia ENT ENT ED: Denies rhinorrhea or sore throat Cardiovascular Cardiovascular: Denies chest pain, orthopnea or racing heartbeat Respiratory/Chest Respiratory/Chest: Denies cough, dyspnea, dyspnea on exertion, orthopnea or sputum Gastrointestinal Gastrointestinal: Denies abdominal pain, diarrhea, nausea or vomiting Genitourinary Genitourinary ED: Denies dysuria, hematuria or urinary frequency Musculoskeletal Musculoskeletal: Reports other Details: Left knee pain ; Denies arthralgias, back pain, myalgias or neck pain Integumentary Denies abscess, Abrasions or rash Neurologic Neurologic: Denies headache(s) or weakness Psychiatric Psychiatric: Denies anxiety, depression or suicidal thoughts Endocrine Endocrinology: Denies polydipsia, polyphagia or polyuria Hematologic/Lymphatic Hematologic/Lymphatic: Denies easy bleeding, easy bruising or lymphadenopathy Allergic/Immunologic Allergic/Immunologic ED: Denies mouth swelling, tongue swelling or urticaria EXAM Physical Exam Const Vital Signs: 04/18/24 12:00 Temperature 98 F Temperature Source Temporal Pulse Rate 71 Respiratory Rate 16 Blood Pressure 109/86 H Blood Pressure Mean 93 Pulse Ox 98 Oxygen Delivery Method Room Air Positive well nourished and well developed General Appearance ED: well developed and NAD HEENT Reports TM's clear and moist mucous membranes normocephalic and atraumatic; Negative for trauma or tenderness Tympanic Membrane ED: Yes TM's clear Eyes PERRL and EOMs intact bilaterally General Eye ED: Negative for pale conjunctiva or scleral icterus Neck no lymphadenopathy, supple and no JVD General: Negative for tenderness Chest Wall inspection of chest normal and palpation of chest normal Chest: Negative for tenderness Resp normal respiratory effort and clear to auscultation bilaterally Effort and Inspection: Negative for respiratory distress or pain with movement Auscultation: Negative for rhonchi, wheezes or diminished lung sounds Cardio regular rate, regular rhythm, S1 normal heart sound, S2 normal heart sound and no murmurs Peripheral Pulses: pulses 2+ throughout GI normal to inspection, nondistended, normoactive bowel sounds, soft to palpation, non-tender, non-distended and no masses Back/Spine no CVA tenderness and no thoracic nor lumbar tenderness Extremity Extremity Narrative: Left knee-patient does have a joint effusion suprapatellar. Patient has limited flexion secondary to pain but is able to flex to about 90 degrees. Ligamentously stable with no laxity noted with anterior and posterior drawer test. No laxity noted with varus or valgus stress. No popping or clicking noted. He is neurovascular intact distally. General Extremety ED: Negative for edema General Extremity: Negative for edema Neuro oriented x3, CN's II-XII intact bilaterally, no sensory deficits noted and gait normal Sensorium / Orientation: awake, alert, oriented to person, oriented to place and oriented to time Motor Exam: strength 5/5 throughout and strength abnormal Psych mental status grossly normal Skin no rashes or lesions noted and no wounds MDM MDM MDM Narrative Medical decision making narrative: Patient presents with left knee injury after having surgery to repair meniscus about 4 weeks ago. Patient x-rays showed no fractures or dislocations. Will place him in a knee immobilizer and given crutches. Will refer back to his orthopedic surgeon for follow-up within next 3 to 5 days. Radiography Diagnostic Testin view x-rays of the left knee obtained interpreted by myself as joint effusion noted without evidence of fracture or dislocation or other abnormality. Discharge Plan Triage Chief Complaint: Lower Extremity Injury ED Provider: Saadia Razo Dx/Rx/DC Orders Clinical Impression: Left knee sprain Instructions: ED Knee Effusion, ED Knee Sprain Prescriptions: New hydrocodone-acetaminophen 5-325 mg tablet 1 tab PO Q4H PRN PRN (Reason: Pain) 2 Days Qty: 10 0RF No Action clonazepam 1 mg tablet 1 mg PO TID PRN (Reason: ANXIETY/ PANIC ATTACK) acetaminophen [Tylenol] 325 mg tablet 650 mg PO ONCE PRN ibuprofen 200 mg capsule 200 mg PO Q6H PRN cyclobenzaprine 10 mg tablet 10 mg PO PRN PRN (Reason: MUSCLE SPASMS) Patient Comments: Take 1 tablet by mouth three times daily as needed for Muscle Spasm. lansoprazole [Prevacid] 30 mg capsule,delayed release(DR/EC) 30 mg PO PRN PRN (Reason: GERD) desvenlafaxine succinate [Pristiq] 100 mg tablet extended release 24 hr 100 mg PO DAILY Auvelity 45-105 mg tablet, IR and ER, biphasic 1 tab PO BID aripiprazole [Abilify] 2 mg tablet 1 mg PO QHS aspirin 81 mg tablet,delayed release (DR/EC) 81 mg PO BID MDD 2 Qty: 60 0RF oxycodone-acetaminophen [Percocet] 5-325 mg tablet 1 tab PO Q4H MDD 6 PRN (Reason: pain) 5 Days Qty: 20 0RF Primary Care Provider: Bladimir Delatorre Referrals: Bladimir Delatorre MD [Primary Care Provider] - Bryce Mercado MD [Med Staff - Active Staff] - 3-5 Days Print Language: Serbian Disposition Disposition: Home, Self Care
--- NOTE | 2024-04-18 12:13 | RAD_ITS ---
EXAM: XR LEFT KNEE COMPLETE, 4 OR MORE VIEWS CLINICAL INDICATION: injury TECHNIQUE: Four or more views of the left knee. COMPARISON: No relevant prior studies available. FINDINGS: BONES/JOINTS: Large knee joint effusion. No acute fracture or subluxation. No significant joint space narrowing. SOFT TISSUES: Normal. No soft tissue swelling or gas. No radiopaque foreign body. RAD/Knee 4 or More Views IMPRESSION: Large knee joint effusion. Electronically Signed: Joel Parker MD at 12:45 EDT ,
[2024-04-18 13:10] VITALS: BP 122/88; PULSE 74; RESP 16; TEMP 36.5; O2SAT 99
== END 2024-04-18 13:11 | disposition home or self-care (01) ==
PROVIDERS: Emergency Provider Emergency Medicine; PCP Family Medicine; Visit Provider Emergency Medicine
DX: S83.92XA Sprain of unspecified site of left knee, initial encounter (principal); W18.49XA Other slipping, tripping and stumbling without falling, initial encounter; Y93.89 Activity, other specified; I10 Essential (primary) hypertension; F41.9 Anxiety disorder, unspecified; Z79.82 Long term (current) use of aspirin; F32.A Depression, unspecified; K21.9 Gastro-esophageal reflux disease without esophagitis; Z79.899 Other long term (current) drug therapy; F17.210 Nicotine dependence, cigarettes, uncomplicated
CPT/HCPCS: 73564; 99283

== ENCOUNTER 2025-08-18 08:34 | Emergency (ER) | payer MEDICARE, MEDICAID, SELFPAY ==
[2025-08-18 08:35] VITALS: BP 143/87; PULSE 76; RESP 16; TEMP 36.7; O2SAT 98; BMI 25.6
--- NOTE | 2025-08-18 08:44 | EX.ED.UPPERE ---
HPI History of Present Illness HPI Narrative: Patient presents with a right hand injury that occurred yesterday. Patient states he fell and landed on his right hand. Patient states his pain is mainly over the right thumb and first MCP joint. Patient states his pain is sharp, aching, burning, and throbbing. Patient states it is worse with any movement. Patient states it is also worse whenever he touches it. Patient states nothing makes it better. Patient denies any paresthesias or weakness. Patient denies any head injury or loss of consciousness. Patient denies any other injuries. Chief Complaint: Upper Extremity Injury Informant: patient Occured/Mechanism Mechanism/Context: Yes fall Onset/Context/Timing Onset: Yesterday Context: Sudden Onset Timing: Continuous Quality of Pain: Sharp, Aching, Burning and Throbbing Location: Right hand, thumb Worsened by: Movement, palpation Relieved by: Nothing Associated Symptoms Associated Symptoms: Negative for Parasthesia, Weakness or Loss of Funtion PFSH [facility] Medical History Leg cramps MCL sprain of left knee Bucket handle tear of medial meniscus of left knee Left knee pain Osteoarthritis of left knee Wears dentures Wears partial dentures Wears glasses Injury of back Back pain Migraine headache History of hiatal hernia Gastric reflux Smoker History of pain when walking History of echocardiogram History of stress test Hypertension Hx of gastric ulcer Hemorrhoids Constipation SOB (shortness of breath) Depression Rheumatoid arthritis Arthritis Fatigue Anxiety Anxiety Nausea Abdominal pain Home Medications ?Medication ?Instructions ?Recorded ?Last Taken ?Type cyclobenzaprine 10 mg tablet 10 mg PO PRN PRN MUSCLE SPASMS 06/22/21 Unknown History lansoprazole 30 mg capsule,delayed 30 mg PO PRN PRN GERD 06/22/21 Unknown History release (Prevacid) clonazepam 1 mg tablet 1 mg PO TID PRN ANXIETY/ PANIC 02/18/24 03/10/24 History ATTACK aripiprazole 2 mg tablet (Abilify) 1 mg PO QHS 03/06/24 03/10/24 History desvenlafaxine succinate 100 mg 100 mg PO DAILY ANIETY 03/06/24 03/11/24 History tablet,extended release 24 hr (Pristiq) dextromethorphan IR 45 1 tab PO BID 03/06/24 03/11/24 History mg-bupropion ER 105 mg biphasic tablet (Auvelity) aspirin 81 mg tablet,delayed 81 mg PO BID vte proph #60 tabs 03/11/24 Unknown Rx release acetaminophen 325 mg tablet 650 mg PO ONCE PRN 03/13/24 Unknown History (Tylenol) ibuprofen 200 mg capsule 200 mg PO Q6H PRN 03/13/24 Unknown History oxycodone-acetaminophen 5 mg-325 1 tab PO Q4H PRN pain 5 days #20 03/17/24 Unknown Rx mg tablet (Percocet) tabs hydrocodone-acetaminophen 5-325mg 1 tab PO Q4H PRN PRN Pain 2 days 04/18/24 Unknown Rx 5mg-325mg #10 TABLETS Allergy/AdvReac Type Severity Reaction Status Date / Time codeine AdvReac Mild Abd Verified 08/18/25 08:37 cramps/diarrhea promethazine (From Phenergan) AdvReac Mild HALLUCINATI Verified 08/18/25 08:37 ONS aspirin AdvReac Abd Verified 08/18/25 08:37 cramps/diarrhea sulfamethoxazole (From AdvReac Abd Verified 08/18/25 08:37 Bactrim) cramps/diarrhea trimethoprim (From Bactrim) AdvReac Abd Verified 08/18/25 08:37 cramps/diarrhea Family History Mother Cancer Father Cancer CVA (cerebral vascular accident) Surgical History S/P lateral meniscus repair of left knee History of esophagogastroduodenoscopy (EGD) History of hand surgery History of cardiac catheterization History of colonoscopy Social History Smoking Status: Current every day smoker tobacco type: cigarettes alcohol intake: never substance use type: does not use caffeine: Yes what type of physical activity do you participate in: none frequency: does not exercise ROS ROS ED Constitutional Constitutional ED: Denies chills or fever(s) Eyes Eyes: Denies blurry vision or change in vision ENT ENT ED: Denies rhinorrhea or sore throat Cardiovascular Cardiovascular: Denies chest pain or palpitations Respiratory/Chest Respiratory/Chest: Denies cough or dyspnea Gastrointestinal Gastrointestinal: Denies nausea or vomiting Genitourinary Genitourinary ED: Denies dysuria or hematuria Musculoskeletal Musculoskeletal: Denies back pain or neck pain Integumentary Denies abscess or rash Neurologic Neurologic: Denies headache(s) or weakness Allergic/Immunologic Allergic/Immunologic ED: Denies mouth swelling or urticaria EXAM Physical Exam Const Vital Signs: 08/18/25 08:35 Temperature 98.1 F Temperature Source Oral Pulse Rate 76 Respiratory Rate 16 Blood Pressure 143/87 H Blood Pressure Mean 105 Pulse Ox 98 Oxygen Delivery Method Room Air Positive well nourished and well developed General Appearance ED: well developed and NAD HEENT Reports moist mucous membranes Neck full ROM and supple Extremity Extremity Narrative: There is tenderness and edema over the right thumb and first metacarpal. There is mild tenderness over the right index finger. There is no obvious deformity noted. There is no tenderness over the distal radius or over the anatomic snuffbox. Range of motion was limited in all motions of the right thumb and hand secondary to pain. Sensation was intact to light touch in the radial, median, and ulnar areas. Strength is 5/5 in the radial, median, and ulnar areas. Radial pulses are equal bilaterally. Neuro oriented x3, CN's II-XII intact bilaterally, moves all extremities, no focal motor deficits and no sensory deficits noted Sensorium / Orientation: alert Motor Exam: strength 5/5 throughout Psych mental status grossly normal MDM MDM MDM Narrative Medical decision making narrative: Differential diagnosis includes fracture, sprain, and contusion. X-rays of the right hand will be obtained to assess for fracture. Radiography Diagnostic Testing: X-rays of the right hand were obtained. There are 3 views. On my independent interpretation, there is no acute fracture or dislocation noted. There is soft tissue swelling noted. Radiologist also interpreted the x-rays and agrees. Discharge Plan Triage Chief Complaint: Upper Extremity Injury ED Provider: Benny Benson Dx/Rx/DC Orders Clinical Impression: Unspecified sprain of right thumb, initial encounter, Fall, Tobacco use Instructions: ED Finger Sprain Prescriptions: No Action clonazepam 1 mg tablet 1 mg PO TID PRN (Reason: ANXIETY/ PANIC ATTACK) acetaminophen [Tylenol] 325 mg tablet 650 mg PO ONCE PRN ibuprofen 200 mg capsule 200 mg PO Q6H PRN cyclobenzaprine 10 mg tablet 10 mg PO PRN PRN (Reason: MUSCLE SPASMS) Patient Comments: Take 1 tablet by mouth three times daily as needed for Muscle Spasm. lansoprazole [Prevacid] 30 mg capsule,delayed release(DR/EC) 30 mg PO PRN PRN (Reason: GERD) desvenlafaxine succinate [Pristiq] 100 mg tablet extended release 24 hr 100 mg PO DAILY Auvelity 45-105 mg tablet, IR and ER, biphasic 1 tab PO BID aripiprazole [Abilify] 2 mg tablet 1 mg PO QHS aspirin 81 mg tablet,delayed release (DR/EC) 81 mg PO BID MDD 2 Qty: 60 0RF hydrocodone-acetaminophen 5-325 mg tablet 1 tab PO Q4H PRN PRN (Reason: Pain) 2 Days Qty: 10 0RF oxycodone-acetaminophen [Percocet] 5-325 mg tablet 1 tab PO Q4H MDD 6 PRN (Reason: pain) 5 Days Qty: 20 0RF Primary Care Provider: Bladimir Delatorre Referrals: Bladimir Delatorre MD [Primary Care Provider, Family Practice] - 5-7 Days Print Language: Bruneian Disposition Disposition: Home, Self Care
--- NOTE | 2025-08-18 09:00 | RAD_ITS ---
PROCEDURE: HAND MIN 3 VIEWS 08/18/2025 REASON FOR EXAM: INJURY/PAIN TECHNIQUE: Procedure Code: JHOANA Modality: DX Procedure: HAND MIN 3 VIEWS Laterality: Right hand COMPARISON: None FINDINGS: Bones: No fracture seen. Joints: Normal alignment. Soft tissues: Soft tissue swelling. Other: RAD/Hand Min 3 Views IMPRESSION: Mild soft tissue swelling. No fracture is seen. Reading Location: [id number]
[2025-08-18 10:07] VITALS: BP 127/82; PULSE 68; RESP 15; TEMP 36.7; O2SAT 99
== END 2025-08-18 10:08 | disposition home or self-care (01) ==
PROVIDERS: Emergency Provider Emergency Medicine; PCP Family Medicine; Visit Provider Emergency Medicine
DX: S63.601A Unspecified sprain of right thumb, initial encounter (principal); I10 Essential (primary) hypertension; W19.XXXA Unspecified fall, initial encounter; K21.9 Gastro-esophageal reflux disease without esophagitis; F32.A Depression, unspecified; F41.9 Anxiety disorder, unspecified; Z79.899 Other long term (current) drug therapy; Z79.82 Long term (current) use of aspirin; F17.210 Nicotine dependence, cigarettes, uncomplicated
CPT/HCPCS: 73130; 99283